=== PATIENT | female | born 1985 | race Caucasian/White ===

== ENCOUNTER → 2021-02-24 | Outpatient (REF) | payer OTHER | LOC: M LAB REF 09:08 | PROVIDERS: ATTEND Internal Medicine Pulmonary Disease | DX: R06.00 Dyspnea, unspecified (principal) ==

== ENCOUNTER → 2021-03-04 | Outpatient (CLI) | payer OTHER ==
--- NOTE | 2021-03-07 10:29 | ECHO ---
ECHOCARDIOGRAM DATE OF PROCEDURE: 03/04/2021 Age: 35 Gender: Female Height: Weight: REFERRING PHYSICIAN: Adi Ventura M.D. PATIENT LOCATION: Outpatient. REASON FOR STUDY: Shortness of breath, history of pulmonary embolism. 2D MEASUREMENTS: IVS 1.0 cm LV 5.0 cm LVPW 1.0 cm LA 3.8 cm Aorta 2.9 cm DOPPLER MEASUREMENT Peak velocity across the aortic valve 1.6 m/s Peak velocity across the LVOT 1.0 m/s Peak gradient across the aortic valve 11 mmHg Mean gradient across the aortic valve 5 mmHg Mitral E 0.9 Mitral A 0.4 with a ratio of 2.3 Maximum tricuspid valve velocity 2.8 m/s 2D COMMENTS: 1. Normal left ventricular size, wall thickness, and normal global left ventricular systolic function. The estimated left ventricular systolic ejection fraction is 60% 65%. 2. Normal left atrium. The right atrium appeared to be mildly enlarged. Normal right ventricle. 3. The atrial septum appeared to be normal without evidence of defect or shunt. 4. Normal aortic root. 5. No pericardial effusion seen. 6. Minimally calcified aortic valve with normal leaflet excursion. Mildly calcified mitral annulus with normal anterior mitral valve leaflet motion. Normal tricuspid valve and pulmonic valve. The proximal pulmonary artery branches also appeared to be normal in size. 7. The inferior vena cava (IVC) was not well visualized. DOPPLER: Detects moderate mitral regurgitation, [id number] tricuspid regurgitation, mild pulmonic regurgitation. The calculated pulmonary artery systolic pressure varies between 30 to 40 mmHg. Assessment of the left ventricular diastolic function appeared to be normal. IMPRESSION: 1. Normal global left ventricular systolic function. Assessment of the left ventricular diastolic function also was normal. 2. Aortic valve sclerosis without stenosis or aortic regurgitation. 3. Probably moderate mitral regurgitation. 4. [id number] tricuspid regurgitation with mild pulmonary hypertension. The right atrium appeared to be mildly enlarged. The right ventricle appeared to be normal in size. 5. Mild pulmonic regurgitation. 6. No prior study available in our system for comparison.
== END ==
LOC: M CARPUL 12:47
PROVIDERS: ATTEND Internal Medicine Pulmonary Disease
DX: R06.00 Dyspnea, unspecified (principal); I27.20 Pulmonary hypertension, unspecified; I35.8 Other nonrheumatic aortic valve disorders

== ENCOUNTER → 2021-03-05 | Outpatient (CLI) | payer OTHER ==
--- NOTE | 2021-03-05 15:23 | REP ---
INDICATION: DYSPNEA. COMPARISON: Outside portable 07/06/2020 TECHNIQUE: PA and lateral FINDINGS: There is a 7 mm size nodule in the right upper lobe. Lung skaggs are otherwise clear. The pleural angles are sharp. The heart is not enlarged. The osseous structures are within normal limits. IMPRESSION: Right lung nodule as described above. Contrast-enhanced CT examination the chest is recommended. The nodule was not seen or was not imaged on the prior portable exam. <Electronically signed by Blade Drake > 03/05/21 [id number]
--- NOTE | 2021-03-05 15:34 | REP ---
INDICATION: DYSPNEA. COMPARISON: None. TECHNIQUE/RADIOTRACER AND DOSE: After the intravenous administration of 5.5 mCi of technetium 99 M MAA a perfusion lung study was performed. After the inhalation of 1 mCi of technetium 99 M DTPA aerosol a ventilation lung study was performed. FINDINGS: The perfusion lung study is normal. There are no defects. IMPRESSION: Normal exam. No evidence of a pulmonary embolus. <Electronically signed by Blade Drake > 03/05/21 [id number]
== END ==
LOC: M RAD 13:34
PROVIDERS: ATTEND Internal Medicine Pulmonary Disease
DX: R06.00 Dyspnea, unspecified (principal); R91.1 Solitary pulmonary nodule
CPT/HCPCS: 71046; 78582; A9540; A9567